=== PATIENT | female | born 1985 | race Caucasian/White ===

== ENCOUNTER 2020-01-04 11:17 | Emergency (ER) | payer MEDICAID ==
[~2020-01-04] VITALS: Ht 160 cm; Wt 79.5 kg
[2020-01-04 11:23] VITALS: BP 139/97
[2020-01-04] MEDS ORDERED: CEPH250T PO (13:08)
[2020-01-04] MEDS ORDERED: LIDOcaine 1% W/epiNEPHrine 1:100,000 20ml vial ONE (16:00)
== END 2020-01-04 13:17 | disposition home or self-care (01) ==
LOC: ER 11:18
DX: L02.611 Cutaneous abscess of right foot (principal); Z79.2 Long term (current) use of antibiotics
CPT/HCPCS: 10060; 99283

== ENCOUNTER 2020-11-02 12:37 | Inpatient (IN) | payer MEDICAID ==
[~2020-11-02] VITALS: Ht 160 cm; Wt 68.2 kg
[2020-11-02 16:45] LABS: BASOPHILS # (AUTO) 0.1 X10'3 (0-0.2); BASOPHILS % (AUTO) 0.4 % (0-1); EOSINOPHILS % (AUTO) 0.2 % (0-6); HEMATOCRIT 41.1 % (35.0-45.0); HEMOGLOBIN 14.2 g/dl (12.0-16.0); LYMPHOCYTES # (AUTO) 1.3 X10'3 (1.1-4.8); LYMPHOCYTES % (AUTO) 5.2 % (21-51); MEAN CORPUSCULAR HEMOGLOBIN 29.8 PG (27.0-31.0); MEAN CORPUSCULAR HGB CONC 34.6 g/dL (33.0-36.5); MEAN CORPUSCULAR VOLUME 86.1 FL (78-98); MEAN PLATELET VOLUME 7.5 FL (7.4-10.4); MONOCYTES # (AUTO) 0.6 X10'3 (0-0.9); MONOCYTES % (AUTO) 2.6 % (2-12); NEUTROPHILS % (AUTO) 91.6 % (42-75); PLATELET COUNT 465 X10'3 (140-440); RED BLOOD COUNT 4.77 X10'6 (4.20-5.60); RED CELL DISTRIBUTION WIDTH 13.7 % (11.5-14.5)
[2020-11-02 16:56] LABS: WHITE BLOOD COUNT 25.2 X10'3 (4.5-11.0)
[2020-11-02 16:58] LABS: ALBUMIN 3.6 G/DL (3.4-5.0); ALBUMIN/GLOBULIN RATIO 0.9 (1.1-1.5); ALKALINE PHOSPHATASE 101 IU/L (46-116); ANION GAP 19 (8-16); ASPARTATE AMINO TRANSFERASE 36 U/L (10-37); BLOOD UREA NITROGEN 11 MG/DL (7-18); BUN/CREATININE RATIO 8.4 (6.6-38.0); CALCIUM 8.9 MG/DL (8.5-10.1); CHLORIDE 97 MMOL/L (99-107); CREATININE 1.31 MG/DL (0.40-0.90); GLUCOSE 237 MG/DL (70-104); SODIUM 137 MMOL/L (135-145); TOTAL CARBON DIOXIDE 20.9 MMOL/L (24-32); TOTAL PROTEIN 7.8 G/DL (6.4-8.2); eGFR 47 ML/MIN
[2020-11-02 17:11] LABS: ALANINE AMINOTRANSFERASE 50 U/L (12-78)
[2020-11-02] MEDS ORDERED: vancomycin/NS 1 GM ADD-VANTAGE 250 ML IV ONE (17:20)
[2020-11-02] MEDS ORDERED: HYDROcodone/acetaminophen 5mg/325mg tablet PO ONE (17:20)
[2020-11-02] MEDS ORDERED: normal saline 1000ML IV soln IVB ONE ×2 (17:20→19:35)
[2020-11-02] MEDS ORDERED: piperacillin/tazo 3.375gm/50ml 50 ML IV ONE (17:20)
[2020-11-02] MEDS ORDERED: potassium Cl 20 mEq SR tablet PO STA (17:35)
[2020-11-02 17:55] LABS: TOTAL CELLS COUNTED 100
[2020-11-02 17:56] LABS: PLATELET ESTIMATE INCREASED
[2020-11-02] MEDS ORDERED: potassium chloride 10mEq ER tablet PO STA (17:58)
[2020-11-02] MEDS ORDERED: iohexol 300mg/ml 100ml inj. ONE (18:15)
--- NOTE | 2020-11-02 18:20 | NUR ---
PT TO CT VIA WHEELCHAIR WITH LINE REPAIRER TOWER
--- NOTE | 2020-11-02 18:20 | NUR ---
PT FROM FAST TRACT TO ER BED 4
[2020-11-02 18:38] LABS: URINE HCG NEGATIVE (NEG)
--- NOTE | 2020-11-02 18:41 | NUR ---
PT BACK FROM CT.
[2020-11-02 18:44] LABS: CLARITY,URINE CLOUDY (Clear); COLOR,URINE YELLOW (Yellow); GLUCOSE, URINE >=1000 mg/dl (Neg); KETONES,URINE 40 mg/dl (Neg); LEUKOCYTE ESTERASE ,URINE TRACE (Neg); NITRITES, URINE NEGATIVE (Neg); OCCULT BLOOD,URINE TRACE-INTACT (Neg); PROTEIN,URINE NEGATIVE (Neg); UROBILINOGEN,URINE 0.2 E.U/dL (0.2-1.0)
[2020-11-02 18:48] LABS: UA COLLECTION TYPE CLN CATCH MIDSTREAM
[2020-11-02 18:59] LABS: BACTERIA,URINE 1+ /HPF (Neg); RBC,URINE 0-2 /HPF (0-2); SQUAMOUS EPITHELIAL CELL,UR FEW /LPF (FEW); WBC,URINE 0-4 /HPF (0-4)
--- NOTE | 2020-11-02 19:00 | NUR ---
PT REPROTS USED METH LAST NIGHT 2100.
[2020-11-02] MEDS ORDERED: magnesium 2GM in 50ml NS 50 ML IV PRN (19:20)
[2020-11-02] MEDS ORDERED: magnesium Cl slow-release 64mg tablet PO PRN (19:20)
[2020-11-02] MEDS ORDERED: acetaminophen 325mg tablet PO PRN (19:20)
[2020-11-02] MEDS ORDERED: morphine 2 MG/ML inj. syringe IV PRN (19:20)
[2020-11-02] MEDS ORDERED: potassium Cl 20 mEq SR tablet PO PRN (19:20)
[2020-11-02] MEDS ORDERED: mag hydrox/Alum hydrox/simeth 30ml oral suspension PO PRN (19:20)
[2020-11-02] MEDS ORDERED: ondansetron/PF 4mg/2ml inj IV PRN (19:20)
[2020-11-02] MEDS ORDERED: magnesium 4gm in 100ml NS 100 ML IV PRN (19:20)
[2020-11-02] MEDS ORDERED: magnesium hydroxide 30ml (MOM) UD suspension PO PRN (19:20)
[2020-11-02] MEDS ORDERED: potassium Cl 40MEQ/1/2NS 520ml 520 ML IV PRN ×2 (19:20)
--- NOTE | 2020-11-02 19:33 | NUR ---
MESSAGE SENT TO DR WALKER, PT'S LACTIC IS 4.9
[2020-11-02] MEDS ORDERED: NO HOME MEDS (19:50)
[2020-11-02] MEDS: K and/or MAG REPLACEMENT MC SCH (20:00)
[2020-11-02 21:00] VITALS: BP 120/62
[2020-11-02] MEDS ORDERED: temazepam 15mg capsule PO PRN (21:00)
[2020-11-02] MEDS: normal saline 1000ml 1,000 ML IV SCH (21:52)
--- NOTE | 2020-11-02 22:37 | NUR ---
I have received report from Jacky GLYNN and had the opportunity to ask questions and assume patient care. RN reported that pt had given RN her meth she had in her bag
[2020-11-02] MEDS ORDERED: MESSAGE TO PHARMACY PO ONE (22:40)
[2020-11-02] MEDS ORDERED: dextrose ORAL solution 15 GM/59 ML bottle PO PRN ×2 (22:40)
[2020-11-02] MEDS ORDERED: glucagon, human recombinant 1mg kit SUBCUT PRN (22:40)
[2020-11-02] MEDS ORDERED: dextrose 50%-water 50ml dispensing syringe IV PRN ×2 (22:40)
[2020-11-02 22:57] LABS: HEMOGLOBIN A1C 9.3 % (4.5-6.2)
[2020-11-02] MEDS: insulin Lispro (HumaLOG) vial - multi-dose SQ SCH (23:27)
[2020-11-03] VITALS: BP 91/40
[2020-11-03 02:37] VITALS: BP 98/58
[2020-11-03] MEDS: normal saline 1000ml 1,000 ML IV SCH ×2 (05:30→16:32)
--- NOTE | 2020-11-03 05:43 | NUR ---
paged MD regarding pt Lactic of 4.9 went down to 3.9. Lactic to be redrawn this morning. MD also paged regarding pt blood glucose of 292. pt stated she was a pre diabetic before. pt started on hyper/hypoglycemic protocol. A1C to be drawn this morning
--- NOTE | 2020-11-03 06:34 | NUR ---
Problems reprioritized. Patient report given, questions answered & plan of care reviewed with Chela GLYNN.
[2020-11-03 06:48] LABS: BASOPHILS # (AUTO) 0.1 X10'3 (0-0.2); BASOPHILS % (AUTO) 0.3 % (0-1); EOSINOPHILS # (AUTO) 0.2 X10'3 (0-0.9); HEMATOCRIT 35.7 % (35.0-45.0); HEMOGLOBIN 12.1 g/dl (12.0-16.0); LYMPHOCYTES # (AUTO) 1.3 X10'3 (1.1-4.8); LYMPHOCYTES % (AUTO) 7.2 % (21-51); MEAN CORPUSCULAR HGB CONC 33.9 g/dL (33.0-36.5); MEAN CORPUSCULAR VOLUME 85.6 FL (78-98); MEAN PLATELET VOLUME 7.7 FL (7.4-10.4); MONOCYTES # (AUTO) 0.7 X10'3 (0-0.9); MONOCYTES % (AUTO) 3.6 % (2-12); NEUTROPHILS # (AUTO) 16.1 X10'3 (1.8-7.7); NEUTROPHILS % (AUTO) 87.9 % (42-75); PLATELET COUNT 352 X10'3 (140-440); RED BLOOD COUNT 4.16 X10'6 (4.20-5.60); RED CELL DISTRIBUTION WIDTH 13.7 % (11.5-14.5); WHITE BLOOD COUNT 18.3 X10'3 (4.5-11.0)
--- NOTE | 2020-11-03 07:01 | NUR ---
Patient in room [facility] 348. I have received report from marito GLYNN and had the opportunity to ask questions and assume patient care.
[2020-11-03 07:11] LABS: ALANINE AMINOTRANSFERASE 30 U/L (12-78); ALBUMIN 2.4 G/DL (3.4-5.0); ALBUMIN/GLOBULIN RATIO 0.7 (1.1-1.5); ALKALINE PHOSPHATASE 86 IU/L (46-116); ANION GAP 9 (8-16); ASPARTATE AMINO TRANSFERASE 20 U/L (10-37); BILIRUBIN,TOTAL 0.6 MG/DL (0.1-1.0); BLOOD UREA NITROGEN 5 MG/DL (7-18); BUN/CREATININE RATIO 9.1 (6.6-38.0); CALCIUM 7.9 MG/DL (8.5-10.1); CHLORIDE 106 MMOL/L (99-107); CREATININE 0.55 MG/DL (0.40-0.90); GLUCOSE 191 MG/DL (70-104); POTASSIUM 3.1 MMOL/L (3.5-5.1); SODIUM 138 MMOL/L (135-145); TOTAL CARBON DIOXIDE 22.8 MMOL/L (24-32); TOTAL PROTEIN 5.9 G/DL (6.4-8.2); eGFR > 90 ML/MIN
[2020-11-03] MEDS: K and/or MAG REPLACEMENT MC SCH ×2 (08:00→20:00)
[2020-11-03] MEDS: HYDROcodone/acetaminophen 5mg/325mg tablet PO PRN ×3 (08:44→21:42)
[2020-11-03] MEDS: CefTRIAXone/D5W-Rocephin 1gm 50 ML IV SCH (08:45)
[2020-11-03] MEDS: vancomycin/NS 1 GM ADD-VANTAGE 250 ML IV SCH ×2 (08:51→20:07)
[2020-11-03] MEDS: potassium Cl 20 mEq SR tablet PO PRN ×3 (09:06→18:05)
[2020-11-03] MEDS: insulin Lispro (HumaLOG) vial - multi-dose SQ SCH ×3 (09:10→20:10)
[2020-11-03 11:00] VITALS: BP 91/57
[2020-11-03] MEDS: Chloraseptic (Phenol) Spray 177ml MM PRN ×2 (14:19→20:17)
--- NOTE | 2020-11-03 17:04 | NUR ---
Initial: Pt admit with cellulitis, hypokalemia, and hyperglycemia with hx IVDA. Pt with A1c 9.3% with reported hx of "pre-diabetes". Pt seen at bedside states she was told she had pre-diabetes a couple years ago and MD wanted to start her on medications however pt did not return to MD. RD attempted verbal review of blood sugar management and protein educations however pt repeatedly would fall asleep. Written educations left at patient's bedside, will f/u for verbal educations once patient more stable. D/w RN need for pt to receive official DM dx by physician given no PMH diabetes and current A1c. Pt endorses a good appetite which is evident with documented 100% PO intake on CHO controlled diet. Pt reports getting full from meals. Pt denies food allergies or difficulty chewing however with difficulty swallowing d/t sore throat. Pt receiving PRN Chloraseptic throat spray which pt reports helps and denies need for texture modification. Pt denies constipation/diarrhea. LBM 1/3. Will continue to follow. Recommendations: 1) Continue CHO Controlled diet 2) Monitor need for additional protein for satiety 3) Bowel care per rx 4) Scaled weights per rx 5) Verbal DM education with written/verbal new DM dx handout once pt is stable and has received official DM dx by physician Addendum: 11/03/20 at [address] Amended: Links added.
--- NOTE | 2020-11-03 18:41 | NUR ---
patient medicated q4hrlt for pain in bilat arms with effect. seen by DR salazar, orders continue. Patient sleeping alot of shift. Report given to marito GLYNN
--- NOTE | 2020-11-03 18:48 | NUR ---
I have received report from Chela GLYNN and had the opportunity to ask questions and assume patient care.
[2020-11-03 20:00] VITALS: BP 117/73
[2020-11-03] MEDS: lactobacillus rhamnosus 10,000 MMU CELLS/CAPSULE PO SCH (20:08)
[2020-11-03] MEDS: insulin glargine (Lantus) pen - multi-dose SQ SCH (21:47)
[2020-11-04] VITALS: BP 121/67
[2020-11-04] MEDS: normal saline 1000ml 1,000 ML IV SCH (01:56)
[2020-11-04] MEDS ORDERED: VANCOMYCIN LEVEL IV ONE (04:30)
[2020-11-04] MEDS: HYDROcodone/acetaminophen 5mg/325mg tablet PO PRN ×3 (04:56→20:27)
[2020-11-04 05:24] LABS: BASOPHILS % (AUTO) 0.4 % (0-1); EOSINOPHILS # (AUTO) 0.3 X10'3 (0-0.9); EOSINOPHILS % (AUTO) 2.4 % (0-6); HEMATOCRIT 32.6 % (35.0-45.0); LYMPHOCYTES # (AUTO) 2.2 X10'3 (1.1-4.8); LYMPHOCYTES % (AUTO) 16.7 % (21-51); MEAN CORPUSCULAR HGB CONC 33.8 g/dL (33.0-36.5); MEAN PLATELET VOLUME 7.5 FL (7.4-10.4); MONOCYTES # (AUTO) 0.5 X10'3 (0-0.9); MONOCYTES % (AUTO) 3.9 % (2-12); NEUTROPHILS # (AUTO) 10.1 X10'3 (1.8-7.7); NEUTROPHILS % (AUTO) 76.6 % (42-75); PLATELET COUNT 349 X10'3 (140-440); RED BLOOD COUNT 3.78 X10'6 (4.20-5.60); RED CELL DISTRIBUTION WIDTH 14.1 % (11.5-14.5); WHITE BLOOD COUNT 13.1 X10'3 (4.5-11.0)
[2020-11-04 05:38] LABS: ALANINE AMINOTRANSFERASE 25 U/L (12-78); ALBUMIN/GLOBULIN RATIO 0.6 (1.1-1.5); ALKALINE PHOSPHATASE 78 IU/L (46-116); ANION GAP 7 (8-16); ASPARTATE AMINO TRANSFERASE 13 U/L (10-37); BILIRUBIN,TOTAL 0.2 MG/DL (0.1-1.0); BLOOD UREA NITROGEN 5 MG/DL (7-18); BUN/CREATININE RATIO 9.4 (6.6-38.0); CALCIUM 7.7 MG/DL (8.5-10.1); CHLORIDE 108 MMOL/L (99-107); CREATININE 0.53 MG/DL (0.40-0.90); GLUCOSE 160 MG/DL (70-104); MAGNESIUM 1.7 MG/DL (1.5-2.4); POTASSIUM 3.2 MMOL/L (3.5-5.1); SODIUM 141 MMOL/L (135-145); TOTAL CARBON DIOXIDE 26.5 MMOL/L (24-32); TOTAL PROTEIN 5.5 G/DL (6.4-8.2); VANCOMYCIN,TROUGH 3.2 UG/ML (6.0-14.0); eGFR > 90 ML/MIN
[2020-11-04] MEDS: vancomycin/NS 1 GM ADD-VANTAGE 250 ML IV SCH ×3 (06:23→21:48)
--- NOTE | 2020-11-04 06:23 | NUR ---
Problems reprioritized. Patient report given, questions answered & plan of care reviewed with Chela GLYNN.
--- NOTE | 2020-11-04 06:37 | NUR ---
Patient in room [facility] 348. I have received report from temo GLYNN and had the opportunity to ask questions and assume patient care.
[2020-11-04 07:00] VITALS: BP 110/69
[2020-11-04] MEDS: K and/or MAG REPLACEMENT MC SCH ×2 (08:00→20:00)
[2020-11-04] MEDS: potassium Cl 20 mEq SR tablet PO PRN ×3 (08:01→20:26)
[2020-11-04] MEDS: lactobacillus rhamnosus 10,000 MMU CELLS/CAPSULE PO SCH ×2 (08:01→20:24)
[2020-11-04] MEDS: CefTRIAXone/D5W-Rocephin 1gm 50 ML IV SCH (08:01)
[2020-11-04] MEDS: insulin Lispro (HumaLOG) vial - multi-dose SQ SCH ×3 (09:23→18:50)
[2020-11-04] MEDS ORDERED: Potassium Cl inj 20 MEQ in normal saline 1000ml 990 ML IV SCH (10:50)
[2020-11-04 11:00] VITALS: BP 115/80
--- NOTE | 2020-11-04 16:19 | NUR ---
DM consult: F/u with RN who reports MD is aware that pt needs official DM dx by physician prior to RD being able to provide full nutrition education. Will continue to follow and provide education once appropriate. Addendum: 11/04/20 at [address] Amended: Links added.
--- NOTE | 2020-11-04 16:42 | NUR ---
patient sleeping alot of shift, up to BR, arousable to voice. medicated for pain in bilat arms x2 with effect.. seen by Dr Stevens . US done of left upper arm see report. resting at time of report
--- NOTE | 2020-11-04 18:40 | NUR ---
Problems reprioritized. Patient report given, questions answered & plan of care reviewed with ivett GLYNN.
[2020-11-04 20:00] VITALS: BP 134/79
[2020-11-04] MEDS: potassium Cl 20mEq in NS 1,000 ML IV SCH (21:48)
[2020-11-04] MEDS: insulin glargine (Lantus) pen - multi-dose SQ SCH (21:53)
[2020-11-04] MEDS: Chloraseptic (Phenol) Spray 177ml MM PRN (21:53)
[2020-11-05] VITALS: BP 124/74
[2020-11-05] MEDS ORDERED: VANCOMYCIN LEVEL IV ONE (05:30)
--- NOTE | 2020-11-05 06:10 | NUR ---
Problems reprioritized. Patient report given, questions answered & plan of care reviewed with GRETTA Pillai.
[2020-11-05] MEDS: potassium Cl 20mEq in NS 1,000 ML IV SCH ×2 (06:28→16:28)
[2020-11-05] MEDS: vancomycin/NS 1 GM ADD-VANTAGE 250 ML IV SCH ×3 (06:37→21:31)
--- NOTE | 2020-11-05 06:52 | NUR ---
Patient in room [facility] 348. I have received report from Sharon GLYNN and had the opportunity to ask questions and assume patient care.
[2020-11-05] MEDS: HYDROcodone/acetaminophen 5mg/325mg tablet PO PRN ×2 (07:44→21:30)
[2020-11-05] MEDS: lactobacillus rhamnosus 10,000 MMU CELLS/CAPSULE PO SCH ×2 (07:44→19:10)
[2020-11-05] MEDS: CefTRIAXone/D5W-Rocephin 1gm 50 ML IV SCH (07:44)
[2020-11-05 07:54] LABS: BASOPHILS # (AUTO) 0.1 X10'3 (0-0.2); BASOPHILS % (AUTO) 0.6 % (0-1); EOSINOPHILS # (AUTO) 0.2 X10'3 (0-0.9); EOSINOPHILS % (AUTO) 2.3 % (0-6); HEMATOCRIT 35.4 % (35.0-45.0); LYMPHOCYTES # (AUTO) 2.1 X10'3 (1.1-4.8); LYMPHOCYTES % (AUTO) 20.5 % (21-51); MEAN CORPUSCULAR HEMOGLOBIN 29.2 PG (27.0-31.0); MEAN CORPUSCULAR HGB CONC 33.9 g/dL (33.0-36.5); MEAN CORPUSCULAR VOLUME 86.2 FL (78-98); MEAN PLATELET VOLUME 7.7 FL (7.4-10.4); MONOCYTES # (AUTO) 0.5 X10'3 (0-0.9); MONOCYTES % (AUTO) 4.5 % (2-12); NEUTROPHILS # (AUTO) 7.4 X10'3 (1.8-7.7); NEUTROPHILS % (AUTO) 72.1 % (42-75); PLATELET COUNT 427 X10'3 (140-440); RED CELL DISTRIBUTION WIDTH 13.7 % (11.5-14.5); WHITE BLOOD COUNT 10.2 X10'3 (4.5-11.0)
[2020-11-05 08:00] VITALS: BP 128/88
[2020-11-05] MEDS: K and/or MAG REPLACEMENT MC SCH ×2 (08:00→20:00)
[2020-11-05 08:07] LABS: ALANINE AMINOTRANSFERASE 20 U/L (12-78); ALBUMIN 2.2 G/DL (3.4-5.0); ALBUMIN/GLOBULIN RATIO 0.5 (1.1-1.5); ALKALINE PHOSPHATASE 89 IU/L (46-116); ANION GAP 10 (8-16); ASPARTATE AMINO TRANSFERASE 9 U/L (10-37); BILIRUBIN,TOTAL 0.2 MG/DL (0.1-1.0); BLOOD UREA NITROGEN 8 MG/DL (7-18); BUN/CREATININE RATIO 17.8 (6.6-38.0); CALCIUM 8.7 MG/DL (8.5-10.1); CHLORIDE 105 MMOL/L (99-107); CREATININE 0.45 MG/DL (0.40-0.90); GLUCOSE 204 MG/DL (70-104); POTASSIUM 3.7 MMOL/L (3.5-5.1); SODIUM 139 MMOL/L (135-145); TOTAL CARBON DIOXIDE 24.4 MMOL/L (24-32); TOTAL PROTEIN 6.3 G/DL (6.4-8.2); eGFR > 90 ML/MIN
[2020-11-05 08:08] LABS: MAGNESIUM 2.1 MG/DL (1.5-2.4); VANCOMYCIN,TROUGH 14.9 UG/ML (6.0-14.0)
[2020-11-05] MEDS: insulin Lispro (HumaLOG) vial - multi-dose SQ SCH ×4 (10:15→21:36)
[2020-11-05 11:00] VITALS: BP 126/84
[2020-11-05 18:00] VITALS: BP 136/90
--- NOTE | 2020-11-05 18:47 | NUR ---
Problems reprioritized. Patient report given, questions answered & plan of care reviewed with Drew GLYNN.
--- NOTE | 2020-11-05 18:47 | NUR ---
I have received report from GRETTA Pillai and had the opportunity to ask questions and assume patient care.
[2020-11-05] MEDS: insulin glargine (Lantus) pen - multi-dose SQ SCH (21:40)
[2020-11-06] VITALS: BP 132/82
[2020-11-06] MEDS: potassium Cl 20mEq in NS 1,000 ML IV SCH ×2 (03:17→12:28)
[2020-11-06] MEDS: vancomycin/NS 1 GM ADD-VANTAGE 250 ML IV SCH (05:46)
[2020-11-06 06:31] LABS: BASOPHILS # (AUTO) 0.1 X10'3 (0-0.2); BASOPHILS % (AUTO) 1.1 % (0-1); EOSINOPHILS # (AUTO) 0.3 X10'3 (0-0.9); EOSINOPHILS % (AUTO) 3.8 % (0-6); HEMOGLOBIN 12.4 g/dl (12.0-16.0); LYMPHOCYTES # (AUTO) 2.7 X10'3 (1.1-4.8); LYMPHOCYTES % (AUTO) 35.1 % (21-51); MEAN CORPUSCULAR HEMOGLOBIN 28.7 PG (27.0-31.0); MEAN CORPUSCULAR HGB CONC 33.4 g/dL (33.0-36.5); MEAN CORPUSCULAR VOLUME 85.9 FL (78-98); MEAN PLATELET VOLUME 7.3 FL (7.4-10.4); MONOCYTES # (AUTO) 0.5 X10'3 (0-0.9); NEUTROPHILS # (AUTO) 4.2 X10'3 (1.8-7.7); PLATELET COUNT 500 X10'3 (140-440); RED BLOOD COUNT 4.31 X10'6 (4.20-5.60); RED CELL DISTRIBUTION WIDTH 13.8 % (11.5-14.5); WHITE BLOOD COUNT 7.8 X10'3 (4.5-11.0)
[2020-11-06 07:00] VITALS: BP 134/78
[2020-11-06 07:07] LABS: ALANINE AMINOTRANSFERASE 22 U/L (12-78); ALBUMIN 2.4 G/DL (3.4-5.0); ALBUMIN/GLOBULIN RATIO 0.5 (1.1-1.5); ALKALINE PHOSPHATASE 86 IU/L (46-116); ANION GAP 11 (8-16); ASPARTATE AMINO TRANSFERASE 11 U/L (10-37); BILIRUBIN,TOTAL 0.2 MG/DL (0.1-1.0); BLOOD UREA NITROGEN 12 MG/DL (7-18); BUN/CREATININE RATIO 21.1 (6.6-38.0); CALCIUM 8.7 MG/DL (8.5-10.1); CHLORIDE 106 MMOL/L (99-107); CREATININE 0.57 MG/DL (0.40-0.90); GLUCOSE 139 MG/DL (70-104); MAGNESIUM 2.2 MG/DL (1.5-2.4); POTASSIUM 3.9 MMOL/L (3.5-5.1); SODIUM 141 MMOL/L (135-145); TOTAL CARBON DIOXIDE 23.7 MMOL/L (24-32); TOTAL PROTEIN 6.9 G/DL (6.4-8.2); eGFR > 90 ML/MIN
[2020-11-06] MEDS: HYDROcodone/acetaminophen 5mg/325mg tablet PO PRN (07:40)
[2020-11-06] MEDS: K and/or MAG REPLACEMENT MC SCH (08:00)
[2020-11-06] MEDS: lactobacillus rhamnosus 10,000 MMU CELLS/CAPSULE PO SCH (08:59)
[2020-11-06] MEDS: CefTRIAXone/D5W-Rocephin 1gm 50 ML IV SCH (08:59)
[2020-11-06] MEDS: insulin Lispro (HumaLOG) vial - multi-dose SQ SCH (09:05)
[2020-11-06] MEDS ORDERED: SULF1TAB49 PO (13:24)
[2020-11-06] MEDS ORDERED: METF500T PO (13:24)
--- NOTE | 2020-11-06 14:30 | NUR ---
PT DISCHARGED IN STABLE CONDITION. IV DC CANULA INTACT. ALL BELONGINGS IN HAND. FOLLOW UP INSTRUCTIONS GIVEN, ALL QUESTIONS ANSWERED. Addendum: 11/06/20 at 1549 by Divine Paulino RN Amended: Links added.
== END 2020-11-06 14:29 | disposition home or self-care (01) | DRG 383 ==
LOC: ER 12:37 → ED HOLD 19:20 → SUR 3N 21:00
PROVIDERS: ADMIT Family Medicine; ATTEND Family Medicine
PROC: BQ2S1ZZ Computerized Tomography (CT Scan) of Left Lower Extremity using Low Osmolar Contrast (ICD-10-PCS; principal; 2020-11-02)
DX: L03.113 Cellulitis of right upper limb (principal); E11.65 Type 2 diabetes mellitus with hyperglycemia; E87.6 Hypokalemia; F15.90 Other stimulant use, unspecified, uncomplicated; F19.10 Other psychoactive substance abuse, uncomplicated; G92 Toxic encephalopathy; L03.114 Cellulitis of left upper limb; Z86.14 Personal history of Methicillin resistant Staphylococcus aureus infection; Z71.51 Drug abuse counseling and surveillance of drug abuser
CPT/HCPCS: 36415; 73201; 76881; 80053; 80202; 81001; 81025; 82948; 83036; 83605; 83735; 84145; 85007; 85025; 87040; 87081; 87088; 96365; 99285; G0378; J0696; J1815; J2543; J3370; J3480; J7030; Q9967

== ENCOUNTER 2021-02-14 18:18 | Emergency (ER) | payer MEDICAID ==
[~2021-02-14] VITALS: Ht 160 cm; Wt 74.1 kg
[2021-02-14 18:35] VITALS: BP 149/95
[2021-02-14] MEDS ORDERED: PENI500T2 PO (19:42)
--- NOTE | 2021-02-14 19:46 | NUR ---
.REMOVED 3 SUTURES FROM PT'S INSIDE RIGHT LIP
== END 2021-02-14 19:49 | disposition home or self-care (01) ==
LOC: ER 18:18
DX: S01.511D Laceration without foreign body of lip, subsequent encounter (principal); F15.90 Other stimulant use, unspecified, uncomplicated; Z48.02 Encounter for removal of sutures; Z79.2 Long term (current) use of antibiotics; X58.XXXD Exposure to other specified factors, subsequent encounter
CPT/HCPCS: 99283

== ENCOUNTER 2021-03-27 13:14 | Emergency (ER) | payer MEDICAID ==
[~2021-03-27] VITALS: Ht 160 cm; Wt 75.0 kg
[2021-03-27 13:23] VITALS: BP 138/94
== END 2021-03-27 13:40 | disposition home or self-care (01) ==
LOC: ER 13:15
DX: M25.571 Pain in right ankle and joints of right foot (principal); F15.90 Other stimulant use, unspecified, uncomplicated
CPT/HCPCS: 99282